=== PATIENT | female | born 1945 | race Caucasian/White ===

== ENCOUNTER → 2016-11-20 | Outpatient (CLI) | payer OTHER ==
[2016-03-20 08:30] VITALS: BMI 24.0
[~2016-11-20] MED LIST: ALPR-411 PO; CALC500C70 PO; CIPR1TAB11 PO; COMPAZINE PO; LOSA50TA6 PO; METFORMIN PO; METR-163 PO; MONT1TAB3 PO; NIFE30TA83 PO; NXM/40 PO; OXYC-57 PO; POTA10TA PO; PRAV20TA PO; SUCR1TAB29 PO; VITAMIN B12 INJ; VITAMIN B12 INJ INJ; VITAMIN B12 PO; VITAMIN D3 PO; [UNRECOGNIZED DRUG - CODE] TOP
[2016-11-20 15:31] VITALS: BMI 23.0
--- NOTE | 2016-11-20 15:49 | PAT Medication Instructions ---
Service Date Nov 20, 2016. Current Home Medication List Alprazolam (Xanax), 0.5 MG PO TID PRN for RN Calcium/Vitamin D (Os-Gagan 500 Plus D), 1 TAB PO QAM Esomeprazole Magnesium (Nexium), 40 MG PO BID Losartan Potassium (Cozaar), 50 MG PO QAM Montelukast Sodium (Singulair), 10 MG PO QPM Nifedipine Ext Rel (Procardia Xl Ext Rel), 30 MG PO QAM Oxycodone/Acetaminophen 5MG/325MG (Percocet 5MG/325MG), 1-2 TABLETS PO BID PRN for N Potassium Chloride (K-Tabs), 20 MEQ PO QAM Pravastatin (Pravachol ), 20 MG PO QPM Sucralfate (Carafate), 1 GM PO QID PRN for D [Compazine], 5 MG PO Q6H PRN for RN [Vitamin B12 Inj], 1,000 MCG INJ MONTHLY [Vitamin B12], 1 TAB PO QAM Medication Instructions For Your Scheduled Surgery - Continue as directed: [Vitamin B12 Inj], 1,000 MCG INJ MONTHLY - Hold the following medications the morning of surgery: [Vitamin B12], 1 TAB PO QAM Sucralfate (Carafate), 1 GM PO QID PRN for D Potassium Chloride (K-Tabs), 20 MEQ PO QAM Losartan Potassium (Cozaar), 50 MG PO QAM Calcium/Vitamin D (Os-Gagan 500 Plus D), 1 TAB PO QAM - Take the following medications the morning of surgery with a sip of water: [Compazine], 5 MG PO Q6H PRN for RN (if needed) Nifedipine Ext Rel (Procardia Xl Ext Rel), 30 MG PO QAM Oxycodone/Acetaminophen 5MG/325MG (Percocet 5MG/325MG), 1-2 TABLETS PO BID PRN for N (okay to take up to 4 hours prior to surgery if needed) Esomeprazole Magnesium (Nexium), 40 MG PO BID Alprazolam (Xanax), 0.5 MG PO TID PRN for RN (if needed) - Take the following medications as scheduled the night before surgery: [Compazine], 5 MG PO Q6H PRN for RN (if needed) Sucralfate (Carafate), 1 GM PO QID PRN for D (if needed) Pravastatin (Pravachol ), 20 MG PO QPM Oxycodone/Acetaminophen 5MG/325MG (Percocet 5MG/325MG), 1-2 TABLETS PO BID PRN for N (if needed) Montelukast Sodium (Singulair), 10 MG PO QPM Esomeprazole Magnesium (Nexium), 40 MG PO BID Alprazolam (Xanax), 0.5 MG PO TID PRN for RN (if needed) If you have any questions please call us at [phone] or [phone] or [phone]
[2016-11-20 16:22] LABS: BASO % 0.3 %; BASO ABS # 0.02 K/uL (0-0.2); COMPLETE YES; EOS % 4.1 %; HEMATOCRIT 38.6 % (37-47); IG% 0.2 %; LYMPH % 32.3 %; MEAN CELL VOLUME 94.8 fL (80-100); MEAN CORPUSCULAR HEMOGLOBIN 31.4 pg (25-34); MEAN CORPUSCULAR HGB CONC 33.2 g/dl (32-36); MEAN PLATELET VOLUME 9.9 fL (7.4-10.4); MONO % 7.5 %; NEUT % 55.6 %; PLATELET COUNT 266 K/uL (130-400); RED BLOOD COUNT 4.07 M/uL (4.2-5.4); WHITE BLOOD COUNT 5.88 K/uL (4.8-10.8)
[2016-11-20 16:29] LABS: URINE APPEARANCE CLEAR (CLEAR); URINE BILIRUBIN NEG (NEG); URINE COLOR YELLOW; URINE NITRITE NEG (NEG); URINE PH 5.5 (4.5-7.5); URINE SPECIFIC GRAVITY 1.013 (1.000-1.030); UROBILINOGEN NEG (NEG); ZZUR CULT IF INDIC CLEAN CATCH NO
[2016-11-20 16:30] LABS: PARTIAL THROMBOPLASTIN RATIO 1.2; PROTHROMBIN TIME (PATIENT) 10.8 SECONDS (9.0-12.0)
[2016-11-20 16:36] LABS: MANUAL MICROSCOPIC REQUIRED? NO; REVIEW REQ? NO
--- NOTE | 2016-11-20 16:36 | DIAGNOSTIC IMAGING REPORT ---
CHEST PREADMISSION(PA/LAT) CLINICAL HISTORY: PAT preoperative evaluation COMPARISON STUDY: No previous studies for comparison. FINDINGS: The bones soft tissues and hemidiaphragms are normal. The cardiomediastinal silhouette is normal. The lungs are clear. The pulmonary vasculature is normal. Several thoracolumbar vertebral plasties are noted IMPRESSION: Negative chest. The above report was generated using voice recognition software. It may contain grammatical, syntax or spelling errors. Electronically signed by: Austin Lewis M.D. 11/20/2016 4:34 PM Dictated Date/Time: 11/20/2016 4:34 PM
[2016-11-20 16:39] LABS: BUN/CREATININE RATIO 18.9 (10-20); CALCIUM 8.7 mg/dl (8.5-10.1); CREATININE 0.78 mg/dl (0.60-1.20)
[2016-11-21 07:34] LABS: ESTIMATED AVERAGE GLUCOSE 120 mg/dl; HA1C FLAG Normal (Normal)
--- NOTE | 2016-12-15 06:23 | CODING QUERY MEDICAL NECESSITY ---
SUPPORTING DIAGNOSIS NEEDED Dr. Hernandez, A supporting diagnosis is required for the test/procedure performed on this patient in order for us to be reimbursed by the patient's insurance. Please provide a supporting diagnosis for the following test/procedure listed below next to the test name along with your signature. *If there is no additional diagnosis for this patient that would support the following test/procedure please document that below next to the test/procedure. Test(s)/Procedure(s) that require a supporting diagnosis: * [id number] GLYCATED HEMOGLOBIN DIAGNOSIS: DATE OF SERVICE: 11/20/16 Provider Signature: Date: Thank you [facility] Information Management Once completed, please kindly fax back to [phone] For questions please call [phone]
== END | disposition home or self-care (01) ==
LOC: C.LAB 08:00 → EDSTATUS 12-17 14:29
PROVIDERS: ATTEND Orthopaedic Surgery Sports Medicine
DX: Z01.818 Encounter for other preprocedural examination (principal)